=== PATIENT | female | born 1950 | race Caucasian/White ===

== ENCOUNTER → 2018-05-04 | Outpatient (CLI) | payer MEDICARE, BC ==
--- NOTE | 2018-05-05 14:04 | MM ---
Reason for exam: screening (asymptomatic). Last mammogram was performed 1 year and 10 months ago. History: Patient is postmenopausal and has history of colon cancer at age 47. Physical Findings: A clinical breast exam by your physician is recommended on an annual basis and results should be correlated with mammographic findings. MG 3D Screening Mammo W/Cad Bilateral CC and MLO view(s) were taken. Prior study comparison: July 01, 2016, bilateral MG screening mammo w CAD. December 11, 2014, bilateral MG screening mammo w CAD. The breast tissue is heterogeneously dense. This may lower the sensitivity of mammography. There is no discrete abnormality. ASSESSMENT: Negative, BI-RAD 1 RECOMMENDATION: Routine screening mammogram of both breasts in 1 year.
== END | disposition home or self-care (01) ==
LOC: RADMAMWWP 07:12
PROVIDERS: ATTEND Internal Medicine Hematology & Oncology
DX: Z12.31 Encounter for screening mammogram for malignant neoplasm of breast (principal)
CPT/HCPCS: 77063; 77067

== ENCOUNTER 2018-09-11 15:19 | Emergency (ER) | payer MEDICARE, BC ==
--- NOTE | 2018-09-11 15:55 | XR ---
EXAMINATION TYPE: XR hand complete RT DATE OF EXAM: 09/11/2018 COMPARISON: NONE HISTORY: Swelling and pain TECHNIQUE: 3 views FINDINGS: There is narrowing and spurring at the first carpometacarpal joint. Metacarpals are otherwi se intact. There is narrowing of the second and third MP joints bases. There is some spurring at the DIP joints. I see no fracture nor dislocation or soft tissue swelling over the distal forearm. IMPRESSION: Soft tissue swelling. No fracture. Osteoarthritis.
--- NOTE | 2018-09-11 15:58 | XR ---
EXAMINATION TYPE: XR forearm RT DATE OF EXAM: 09/11/2018 COMPARISON: NONE HISTORY: Pain and swelling TECHNIQUE: 2 views FINDINGS: There is some soft tissue swelling on the dorsum of the distal forearm. I see no fracture n or dislocation. Elbow joint and wrist joint appear intact. IMPRESSION: Soft tissue swelling. No fracture seen.
[2018-09-11] MEDS ORDERED: DIPH,PERTUS(ACELL)TETVAC-LF 0.5 ML VIAL IM ONE (16:08)
[2018-09-11] MEDS ORDERED: LIDOCAINE 1% INJ 10MG/ML (20 ML MDV) SQ STA (16:41)
--- NOTE | 2018-09-11 17:30 | ED ---
General Adult HPI - General Chief complaint: Extremity Injury, Upper Stated complaint: Wrist injury Time Seen by Provider: 09/11/18 15:31 Source: patient, RN notes reviewed, old records reviewed Mode of arrival: ambulatory Limitations: no limitations - History of Present Illness Initial comments: 67-year-old female patient past medical history of Sjogren syndrome, hypertension, colon cancer in remission presents to ED after sustaining a injury to her left forearm. Patient reports that she was sledding today and traveling down the hill at a medium rate of speed when she intentionally rolled off of her slowed to avoid a collision with a another slider. Patient states that during this roll her jacket was pushed up by snout and she sustained a laceration to the ulnar aspect of her right forearm. Patient also has some soft tissue swelling did not significant pain in that region. Patient denies any trauma to head or neck, denies any loss of consciousness. Patient denies any other complaints, is ambulatory without difficulty. Patient denies use of blood thinners. Patient does not know date of last tetanus shot. Systemic: Pt denies fatigue, myalgia, fever/chills, rash. Pt denies weakness, night sweats, weight loss. Neuro: Pt denies headache, visual disturbances, syncope or pre-syncope. HEENT: Pt denies ocular discharge or irritation, otalgia, rhinorrhea, pharyngitis or notable lymphadenopathy. Cardiopulmonary: Pt denies chest pain, SOB, heart palpitations, dyspnea on exertion. Abdominal/GI: Pt denies abdominal pain, n/v/d. : Pt denies dysuria, burning w/ urination, frequency/urgency. Denies new onset urinary or bowel incontinence. MSK: Pt denies myalgia, loss of strength or function in extremities. Neuro: Pt denies new onset weakness, paresthesias. - Related Data Home Medications Medication Instructions Recorded Confirmed amLODIPine BESYLATE [Norvasc] 5 mg PO DAILY 04/16/14 07/09/16 Calcium + Vit D 2 tab PO DAILY 07/08/16 07/08/16 Pilocarpine [Salagen] 5 mg PO BID 07/08/16 07/08/16 Previous Rx's Medication Instructions Recorded Amoxicillin/Potassium Clav 1 each PO Q12HR #20 tab 07/09/16 [Augmentin 875-125 Tablet] Hydrocodone/Acetaminophen [[place] 1 - 2 each PO Q6HR PRN #50 tab 07/09/16 5-325] predniSONE 20 mg PO DIRECTED #5 tab 07/09/16 Allergies Allergy/AdvReac Type Severity Reaction Status Date / Time No Known Allergies Allergy Verified 09/11/18 15:25 Review of Systems ROS Statement: Those systems with pertinent positive or pertinent negative responses have been documented in the HPI. ROS Other: All systems not noted in ROS Statement are negative. Past Medical History Past Medical History: Cancer, Hyperlipidemia, Hypertension Additional Past Medical History / Comment(s): hx colon cancer, sjogrens History of Any Multi-Drug Resistant Organisms: None Reported Past Surgical History: Appendectomy, Bowel Resection, Joint Replacement, Tubal Ligation Additional Past Surgical History / Comment(s): COLOSTOMY/later reversed, RIGHT HIP REPLACEMENT, ORIF left wrist, "face lift" Past Anesthesia/Blood Transfusion Reactions: No Reported Reaction Past Psychological History: No Psychological Hx Reported Smoking Status: Never smoker Past Alcohol Use History: Occasional Past Drug Use History: None Reported - Past Family History Brother(s) Family Medical History: Cancer General Exam - General Exam Comments Initial Comments: Constitutional: NAD, AOX3, Pt has pleasant affect. HEENT: NC/AT, trachea midline, neck supple, no lymphadenopathy. Posterior pharynx non erythematous, without exudates. External ears appear normal, without discharge. Mucous membranes moist. Eyes PERRLA, EOM intact. There is no scleral icterus. No pallor noted. Cardiopulmonary: RRR, no murmurs, rubs or gallops, no JVD noted. Lungs CTAB in anterior and posterior duarte. No peripheral edema. Abdominal exam: Abdomen soft and non-distended. Abdomen non-tender to palpation in all 4 quadrants. Bowel sounds active in LLQ. No hepatosplenomegaly. No ecchymosis Neuro: CN II-XII intact. No nuchal rigidity. No cervical spinal tenderness. MSK: Approximately 4cm laceration on ulnar aspect of R forearm, midshaft. Mild amount of soft tissue swelling at site of laceration. No tenerness to palpation of hand/wrist with exception of site of laceration. Full ROM of hand, fingers, sensation intact. No posterior calf tenderness bilaterally, homans sign negative bilaterally. Posterior tibialis and radial pulse +2 bilaterally. Sensation intact in upper and lower extremities. Full active ROM in upper and lower extremities, 5/5 stregnth. Limitations: no limitations Course Vital Signs 09/11/18 09/11/18 15:22 17:39 Temperature 97.7 F 97.9 F Pulse Rate 72 83 Respiratory 16 18 Rate Blood Pressure 117/74 130/85 O2 Sat by Pulse 99 100 Oximetry Procedures - Laceration Laceration #1 Consent Obtained: verbal consent Time Out Performed: Yes Indication: laceration Site: upper extremity (R forearm) Size (cm): 4 Description: linear Depth: simple, single layer Anesthetic Used: lidocaine 1% Anesthesia Technique: local infiltration Amount (mls): 5 Pre-repair: wound explored, irrigated extensively (1L NS), deep structures intact Type of Sutures: nylon Size of Sutures: 5-0 Number of Sutures: 7 Technique: simple, interrupted Patient Tolerated Procedure: well, no complications Medical Decision Making - Medical Decision Making 67-year-old female patient past medical history of Sjogren syndrome, hypertension, colon cancer in remission presents to ED after sustaining a injury to her left forearm. Patient reports that she was sledding today and traveling down the hill at a medium rate of speed when she intentionally rolled off of her slowed to avoid a collision with a another slider. Patient states that during this roll her jacket was pushed up by snout and she sustained a laceration to the ulnar aspect of her right forearm. Pt VSS, afebrile. Physical exam revealed: Approximately 4cm laceration on ulnar aspect of R forearm, midshaft. Mild amount of soft tissue swelling at site of laceration. No tenerness to palpation of hand/wrist with exception of site of laceration. Full ROM of hand, fingers, sensation intact. No posterior calf tenderness bilaterally , homans sign negative bilaterally. Posterior tibialis and radial pulse +2 bilaterally. Sensation intact in upper and lower extremities. Full active ROM in upper and lower extremities, 5/5 stregnth. Plain film of right hand and forearm did not display any acute osseous abnormality. Wound closed primarily with 7 simple interrupted sutures. Wound irrigated with 1 L normal saline. Patient tetanus updated. Patient to return in 7-10 days to have sutures removed. Patient to follow with primary care provider in 1-2 days. Patient to watch for signs symptoms of infection, educated extensively, patient verbalized understanding. Patient to return to ED if new signs or symptoms develop or if condition worsens in any way. Case discussed in depth with Dr. Dallas. Disposition Clinical Impression: Laceration Disposition: HOME SELF-CARE Condition: Stable Instructions: Care For Your Stitches (ED), Laceration (ED) Additional Instructions: Patient to adhere to previously discussed treatment plan and will take medication(s) as directed. Patient to follow up with PCP in 1-2 days. Patient to return to ED if symptoms do not improve. Is patient prescribed a controlled substance at d/c from ED?: No Referrals: Star Garner MD [Primary Care Provider] - 1-2 days Time of Disposition: 17:30
[2018-09-11 17:40] VITALS: BP 130/85; PULSE 83; RESP 18; TEMP 97.9
== END 2018-09-11 17:40 | disposition home or self-care (01) ==
LOC: EC 15:19
DX: S51.811A Laceration without foreign body of right forearm, initial encounter (principal); M35.00 Sjogren syndrome, unspecified; I10 Essential (primary) hypertension; Z85.038 Personal history of other malignant neoplasm of large intestine; Z79.899 Other long term (current) drug therapy; Z96.641 Presence of right artificial hip joint; Z23 Encounter for immunization; W19.XXXA Unspecified fall, initial encounter; Y93.23 Activity, snow (alpine) (downhill) skiing, snowboarding, sledding, tobogganing and snow tubing; Y92.828 Other wilderness area as the place of occurrence of the external cause
CPT/HCPCS: 99284 ×2; 90471 ×2; 12002 ×2; 73090; 73130; 90715; J2001

== ENCOUNTER 2018-12-23 10:47 | Day surgery (SDC) | payer MEDICARE, BC ==
[~2018-12-23 10:47] MED LIST: DEXAMETHASONE SOD PHOSPHATE 10 MG/ML 1 ML VIAL IV ONE; MIDAZOLAM 2 MG/2 ML VIAL IV PRN; ONDANSETRON 4 MG/2 ML VIAL IVP ONE; ceFAZolin IN SWFI 2 GM/20 ML SYRINGE IVP ONE
[2018-12-23] MEDS: LACTATED RINGERS 1,000 ML IV SCH ×2 (11:20→17:17)
[2018-12-23] MEDS ORDERED: LIDOCAINE 1% 20 ML VIAL (10MG/ML) FOR IV START SQ ONE (11:21)
[2018-12-23] MEDS ORDERED: PROPOFOL 10 MG/ML 20 ML VIAL IV ONE (12:33)
[2018-12-23] MEDS ORDERED: LIDOCAINE 1% INJ 10MG/ML (20 ML MDV) ONE (12:33)
[2018-12-23] MEDS ORDERED: HYDROmorphone (PF) 1 MG/ML ONE (12:33)
[2018-12-23] MEDS ORDERED: fentaNYL (PF) 50 MCG/ML 2 ML AMP ONE (12:33)
[2018-12-23] MEDS ORDERED: MIDAZOLAM 2 MG/2 ML VIAL ONE (12:33)
--- NOTE | 2018-12-23 14:34 | FL ---
Fluoroscopy HISTORY: Arthrodesis 9 seconds fluoroscopy time supplied to the referring clinician. 2 intraoperative C-arm images docume nt the procedure. See dictated report from orthopedic surgery.
--- NOTE | 2018-12-23 14:36 | XR ---
Limited left foot HISTORY: Arthrodesis 2 intraoperative C-arm images document the procedure.
[2018-12-23] MEDS ORDERED: ONDANSETRON 4 MG/2 ML VIAL IVP PRN (14:54)
[2018-12-23] MEDS ORDERED: SENNOSIDES-DOCUSATE SODIUM 1 EACH TAB PO PRN (14:54)
[2018-12-23] MEDS ORDERED: hydrOXYzine PAMOATE 25 MG CAP PO PRN (14:54)
[2018-12-23] MEDS ORDERED: HYDROmorphone 0.5 MG/0.5 ML SYRINGE IVP PRN ×3 (14:54)
[2018-12-23] MEDS: HYDROmorphone 0.5 MG/0.5 ML SYRINGE IVP PRN ×2 (14:57→15:06)
--- NOTE | 2018-12-23 15:00 | P.OP ---
Date of Procedure: 12/23/18 Preoperative Diagnosis: 1. Left hallux rigidus status post first MTP fusion with early valgus deformity 2. Open wound over her left first MTP incision Postoperative Diagnosis: 1. Valgus malunion left first MTP joint 2. Open wound with communication the hardware over her first MTP joint Procedure(s) Performed: 1. Revision fusion left first MTP joint 2. Hardware removal deep, left foot 3. 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 I previously performed a left first MTP arthrodesis in September 2018. She did well initially but then developed progressively worsening valgus deformity and overlapping of the second toe. She then developed cellulitis that didn't respond to oral antibiotics and resulted in an open wound over the incision. There is exposed tendon and a small amount of drainage. I met with the patient in the office earlier this week to discuss treatment. We discussed referral to the wound center and suppressive antibiotics versus operative debridement. We also discussed revising the fusion at that same setting. The patient requested exploring the wound and if there was no evidence of deep infection revising the first MTP joint. She understands the potential for deep infection that may re quire not placing hardware and need for further surgery. We discussed potential risks and competitions of surgery including but not limited to risk of anesthesia, superficial infection, deep infection, delayed wound healing, superficial wound necrosis, deep wound necrosis, nonunion of the fusion site, malunion the fusion site, some to Chance hardware, chronic pain, chronic swelling, DVT, PE, other medical complications, need for further surgery, possibly loss of life or limb. The patient voiced understanding of this and provided her verbal and written consent to go forward with surgery. Operative Findings: There is a small open wound over the dorsal incision the size of a pencil eraser with visible tendon. The open wound tracked down to the plate. The fusion site had almost completely healed and there is no evidence of deep infection. Description of Procedure: The patient was identified in preoperative holding and the correct left leg was marked with my initials. I reviewed the consent form with the patient and her friend. All of their questions were answered. The patient was then brought back to the operating room by anesthesia. She was positioned on the or table where a general anesthetic and preoperative X were given. A tourniquet was applied proximal aspect of the left leg. All bony prominences were well-padded. The left leg was then prepped and draped in the standard sterile fashion. Prior to starting surgery timeout was performed identifying the correct patient, operative extremity, and procedure. The patient's leg was then elevated, exsanguinated with an Esmarch bandage, and the tourniquet was inflated to 250 mmHg. I began by outlining the prior scar over the dorsum of the first MTP joint taking care to ellipse out the open wound. Skin incision was made with a scalpel. Dissection was carried down carefully through subcutaneous tissue. The open wound was found to tract down to the plate. The capsule over the first MTP joint was elevated and the plate and screws were carefully removed. The lag screw across the joint was then removed as well. On inspection the fusion appeared to be almost completely healed. Using a quarter inch osteotome I was able to open the fusion site without damaging the surrounding bone. The wound was thoroughly irrigated with sterile saline. A Macario was used to freshen up the bone of the first metatarsal head and proximal phalanx base. Bone was taken off the proximal phalanx until the first metatarsal head and proximal phalanx could be positioned straight. A 0.0625 K wire was used to perforate the bone to help facilitate fusion. Augment was then injected in and around the fusion site to help with healing. 0.0625 K wires were placed across the joint to hold it in place. The position of the fusion was checked with a flat plate and the toe appeared straight with out excessive valgus or dorsiflexion. Fluoroscopy was used to verify the position. I then placed a precontoured revision first MTP fusion plate over the dorsum of the first ray. It was slightly contoured to fit the patient's anatomy. An olive-tipped K wire was placed proximally holding the plate down to bone. I then placed a nonlocking 2.7 mm screw distally into the proximal phalanx bring the plate down to bone followed by locking 2.7 mm screws. Attention was then turned proximally and a nonlocking 3.5 mm screw was placed through the proximal portion of the eccentric cold to generate compression. 2 locking 3.5 mm screws were placed just proximal to the joint and a final nonlocking 3.5 mm screw was placed in the central portion of the oblong hole. The fusion site appeared stable with excellent compression. Local bone graft obtained throughout the procedure was packed around the fusion site. The remaining augment from the syringe was injected in and around the fusion site. Final fluoroscopic images were taken. Clinically the toe appeared straight. The capsule was closed with interrupted 0 Vicryl. The deep subcu was reapproximated using 3-0 Monocryl. The skin was closed with 3-0 nylon Algor modification of the Donati stitch. The wound was then thoroughly irrigated. A sterile dressing was applied followed by well-padded bulky Lee splint. The patient was awoken from her anesthetic, transferred to a gurney, and brought to recovery ramp out procedure well. Cynthia Cantu PA-C was required as a skilled post production assistant for patient positioning, surgical exposure, placement of hardware, closure of wound and application of splint. Plan: The patient is going to be admitted overnight for IV antibiotics and a wound consultation with Dr. Chappell regarding need for long-term suppressive antibiotics. She is to be strictly nonweightbearing on her left leg for 6 weeks given this as a revision procedure. We'll check a vitamin D to help optimize her bone healing potential. She'll be seen in 2 weeks for splint removal, soft tissue check, and x-rays.
[2018-12-23] MEDS ORDERED: KETOROLAC 30 MG/ML 1 ML VIAL IVP ONE (15:07)
[2018-12-23 17:27] VITALS: BMI 26.8
[2018-12-23] MEDS: HYDROcodone/APAP 5-325MG 1 EACH TAB PO PRN ×2 (17:33→22:54)
[2018-12-23 19:48] LABS: Basophils % (A) 0 %; Eosinophils % (A) 0 %; HCT 39.5 % (34.0-46.0); HGB 12.9 gm/dL (11.4-16.0); Lymphocytes # (A) 0.8 k/uL (1.0-4.8); Lymphocytes % (A) 10 %; MCHC 32.8 g/dL (31.0-37.0); MCV 94.5 fL (80.0-100.0); Mean Platelet Volume 8.8; Monocytes # (A) 0.1 k/uL (0-1.0); Monocytes % (A) 2 %; Neutrophils % (A) 87 %; Platelet Count 204 k/uL (150-450); RBC 4.18 m/uL (3.80-5.40); RDW 14.1 % (11.5-15.5)
[2018-12-23] MEDS: ceFAZolin IN SWFI 2 GM/20 ML SYRINGE IVP SCH (21:54)
--- NOTE | 2018-12-23 23:28 | P.CONS ---
History of Present Illness - Reason for Consult Consult date: 12/23/18 - Chief Complaint ulceration of the left foot - History of Present Illness 68 year old woman who is status post the left first toe MTP joint fusion. Postoperatively started have difficulties and developed a valgus deformity, as well as ulceration and some hardware exposure. The patient subsequently has been taken the operating room in the necrotic tissue excised, deep hardware removed, valgus deformity repaired and closure has occurred. Because of the exposed hardware consultation was requested. This very pleasant woman relates that the site has been mildly uncomfortable. She had difficulty with redness and irritation to the tissue since shortly after the intervention had occurred. Eventually worsening of the point in time of ulceration. The patient does relate to a known history of difficulties with metals. 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 She even obtained a high quality pair of earrings and still had irritation to her ears.. Of note she does have a right total hip arthroplasty without difficulty. She is not able to relate if it is a nickel free product. At this time she is receiving cefazolin the for routine surgical prophylaxis. Deep cultures have been initiated. Family reviewed and plans will be placed for her outpatient antibiotic therapy. His related that she was receiving trimethoprim sulfamethoxazole prior to admission. If she does well will likely discharge tomorrow on oral cephalosporin for somewhat of a chronic treatment given the recent difficulty. Past Medical History Past Medical History: Cancer, Hyperlipidemia, Hypertension Additional Past Medical History / Comment(s): hx colon cancer 1994, sjogrens, past hx. 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, current infection left foot-had surgery 10-20-18 History of Any Multi-Drug Resistant Organisms: None Reported Past Surgical History: Appendectomy, Bowel Resection, Joint Replacement, Tubal Ligation Additional Past Surgical History / Comment(s): COLOSTOMY/later reversed, RIGHT HIP REPLACEMENT, ORIF left wrist, "face lift", right medialization thyroplasty w/stent, bunionectomy & toe surgery left foot 10-20-18 Past Anesthesia/Blood Transfusion Reactions: No Reported Reaction Additional Past Anesthesia/Blood Transfusion Reaction / Comm: has vocal cord stent Past Psychological History: No Psychological Hx Reported Smoking Status: Never smoker Past Alcohol Use History: Occasional Past Drug Use History: None Reported - Past Family History Brother(s) Family Medical History: Cancer Medications and Allergies Home Medications Medication Instructions Recorded Confirmed Type amLODIPine BESYLATE [Norvasc] 5 mg PO DAILY 04/16/14 12/23/18 History Calcium Carbonate/Vitamin D3 1 each PO DAILY 07/08/16 12/23/18 History [Calcium 500-Vit D3 600 Tablet] Hydrocodone/Acetaminophen [[place] 1 - 2 each PO Q6HR PRN #50 tab 07/09/16 12/23/18 Rx 5-325] Lovastatin [Mevacor] 20 mg PO DAILY 12/21/18 12/23/18 History Sulfamethox-Tmp 800-160Mg [Bactrim 1 tab PO Q12HR 12/21/18 12/23/18 History DS 800-160 mg] Aspirin 325 mg PO DAILY #14 tab 12/23/18 Rx Docusate [Colace] 100 mg PO BID #60 capsule 12/23/18 Rx Hydrocodone/Acetaminophen [[place] 1 tab PO Q4-6H PRN #40 tab 12/23/18 Rx 5-325] Allergies Allergy/AdvReac Type Severity Reaction Status Date / Time No Known Allergies Allergy Verified 12/21/18 12:20 Physical Exam Vitals: Vital Signs Temp Pulse Pulse Resp BP Pulse Ox 12/23/18 19:10 97.6 F 82 14 134/70 97 12/23/18 18:12 69 151/75 12/23/18 17:57 71 148/76 12/23/18 17:50 75 18 12/23/18 17:27 71 148/76 12/23/18 17:12 84 165/74 12/23/18 16:01 75 18 163/70 99 12/23/18 15:45 77 16 154/67 99 12/23/18 15:30 91 16 164/73 99 12/23/18 15:16 79 16 159/71 98 12/23/18 15:01 98 18 162/72 97 12/23/18 14:53 97.6 F 101 H 18 157/70 94 L 12/23/18 11:01 98.3 F 64 16 127/91 100 Intake and Output 12/23/18 12/23/18 12/24/18 14:59 22:59 06:59 Intake Total 650 150 Output Total 10 Balance 640 150 Intake: IV 650 150 Output: Estimated Blood Loss 10 Other: Voiding Method Toilet Results CBC & Chem 7: 12/23/18 19:20 Labs: Abnormal Lab Results - Last 24 Hours (Table) 12/23/18 Range/Units 19:20 Lymphocytes # 0.8 L (1.0-4.8) k/uL Microbiology - Last 24 Hours (Table) 12/23/18 13:05 Anaerobic Culture - Preliminary Foot - Left 12/23/18 13:05 Tissue Culture - Preliminary Foot - Left
[2018-12-24] MEDS: LACTATED RINGERS 1,000 ML IV SCH ×2 (00:25→04:09)
[2018-12-24] MEDS: ceFAZolin IN SWFI 2 GM/20 ML SYRINGE IVP SCH (04:14)
[2018-12-24] MEDS: HYDROcodone/APAP 5-325MG 1 EACH TAB PO PRN ×2 (07:02→12:09)
[2018-12-24] MEDS ORDERED: ENOXAPARIN 40 MG/0.4 ML SYRINGE SQ SCH (09:00)
[2018-12-24 09:11] VITALS: BP 135/66; PULSE 73; RESP 16; TEMP 97.8
--- NOTE | 2018-12-24 17:12 | P.PN ---
Subjective Progress Note Date: 12/24/18 68 year old woman who is status post the left first toe MTP joint fusion. Postoperatively started have difficulties and developed a valgus deformity, as well as ulceration and some hardware exposure. The patient subsequently has been taken the operating room in the necrotic tissue excised, deep hardware removed, valgus deformity repaired and closure has occurred. Because of the exposed hardware consultation was requested. This very pleasant woman relates that the site has been mildly uncomfortable. She had difficulty with redness and irritation to the tissue since shortly after the intervention had occurred. Eventually worsening of the point in time of ulceration. The patient does relate to a known history of difficulties with metals. 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 She even obtained a high quality pair of earrings and still had irritation to her ears.. Of note she does have a right total hip arthroplasty without difficulty. She is not able to relate if it is a nickel free product. At this time she is receiving cefazolin the for routine surgical prophylaxis. Deep cultures have been initiated. Family reviewed and plans will be placed for her outpatient antibiotic therapy. His related that she was receiving trimethop rim sulfamethoxazole prior to admission. If she does well will likely discharge tomorrow on oral cephalosporin for somewhat of a chronic treatment given the recent difficulty. 12/24/2018 patient has definitely improved. Objective - Vital Signs Vital signs: Vital Signs Temp 97.8 F 12/24/18 07:00 Pulse 73 12/24/18 07:00 Resp 16 12/24/18 07:00 BP 135/66 12/24/18 07:00 Pulse Ox 94 L 12/24/18 07:00 Intake & Output 12/23/18 12/24/18 12/24/18 18:59 06:59 18:59 Intake Total 800 1100 1280 Output Total 10 Balance 790 1100 1280 Intake: IV 800 Intake, IV Titration 1100 800 Amount Lactated Ringers 1,000 ml 1100 800 @ 100 mls/hr IV .Q10H JHONATAN Rx#:[id number] Oral 480 Output: Estimated Blood Loss 10 Other: Voiding Method Toilet # Voids 2 1 - Exam HEENT: Anicteric conjunctiva are pink and moist nasal mucosa grossly intact without significant lesions, there is no thrush. Neck: The neck is supple without significant lymphadenopathy or thyromegaly. Lungs: Good bilateral air entry without significant crackles or wheezing. There is no significant bronchial sounds. There is no egophony or dullness. Heart: Regular rate and rhythm with an audible S1-S2, no S3 no S4. There is no significant murmur click or rub, PMI was nondisplaced. Abdomen: Positive bowel sounds soft and nontender without palpable masses or organomegaly. There was no guarding or rebound. Extremities: Carolee extremities are intact has a cast in place on the left lower extremity at the foot Neuro: Awake alert oriented to person place and time. There are no acute new gross focal sensory motor deficits. - Labs CBC & Chem 7: 12/23/18 19:20 Labs: Abnormal Lab Results - Last 24 Hours (Table) 12/23/18 Range/Units 19:20 Lymphocytes # 0.8 L (1.0-4.8) k/uL Microbiology - Last 24 Hours (Table) 12/23/18 13:05 Gram Stain - Preliminary Foot - Left Tissue Culture - Preliminary 12/23/18 13:05 Anaerobic Culture - Preliminary Foot - Left Laboratory Results WBC 8.0 k/uL (3.8-10.6) 12/23/18 19:20 RBC 4.18 m/uL (3.80-5.40) 12/23/18 19:20 Hgb 12.9 gm/dL (11.4-16.0) 12/23/18 19:20 Hct 39.5 % (34.0-46.0) 12/23/18 19:20 MCV 94.5 fL (80.0-100.0) 12/23/18 19: MCH 31.0 pg (25.0-35.0) 12/23/18 19:20 MCHC 32.8 g/dL (31.0-37.0) 12/23/18 19:20 RDW 14.1 % (11.5-15.5) 12/23/18 19:20 Plt Count 204 k/uL (150-450) 12/23/18 19:20 Neutrophils % 87 % 12/23/18 19:20 Lymphocytes % 10 % 12/23/18 19:20 Monocytes % 2 % 12/23/18 19:20 Eosinophils % 0 % 12/23/18 19:20 Basophils % 0 % 05/03/19 19:20 Neutrophils # 7.0 k/uL (1.3-7.7) 12/23/18 19:20 Lymphocytes # 0.8 k/uL (1.0-4.8) L 12/23/18 19:20 Monocytes # 0.1 k/uL (0-1.0) 12/23/18 19:20 Eosinophils # 0.0 k/uL (0-0.7) 12/23/18 19:20 Basophils # 0.0 k/uL (0-0.2) 12/23/18 19:20 Microbiology 12/23/18 13:05 Foot - Left Gram Stain - Preliminary 12/23/18 13:05 Foot - Left Tissue Culture - Preliminary 12/23/18 13:05 Foot - Left Anaerobic Culture - Preliminary Assessment and Plan (1) Hardware failure Narrative/Plan: 68-year-old woman presents to Hospital for removal of hardware and repair of the left great toe. This is occurred and she is doing well in the postoperative time frame. Deep cultures were obtained and gram stains are negative and no evidence of any significant purulence or inflammation are seen. Patient is transitioned to oral cefadroxil 500 mg orally every 12 hours for the next many weeks. Happy to follow in the office in about a month to see how she does and antibiotic therapy and help wound healing is progressing at that point in time. Protracted antibiotic therapy given the desire to retain current hardware. There is however concerned to underlying nickel ALLERGY, but does have a right total hip arthroplasty that has been well incorporated without difficulty. Status: Acute Code(s): XUI6196 - SNOMED Code(s): 194983057
== END 2018-12-24 16:27 ==
LOC: OR 10:47 → 4SSUR 14:53 → OR 12-24 16:27
PROVIDERS: ATTEND Orthopaedic Surgery
DX: M20.22 Hallux rigidus, left foot (principal); M21.072 Valgus deformity, not elsewhere classified, left ankle; S91.102A Unspecified open wound of left great toe without damage to nail, initial encounter; L03.032 Cellulitis of left toe; T85.848A Pain due to other internal prosthetic devices, implants and grafts, initial encounter; Z98.1 Arthrodesis status; Z96.641 Presence of right artificial hip joint; I10 Essential (primary) hypertension; E78.5 Hyperlipidemia, unspecified; M35.00 Sjogren syndrome, unspecified; Z85.038 Personal history of other malignant neoplasm of large intestine; Z90.49 Acquired absence of other specified parts of digestive tract; Z79.82 Long term (current) use of aspirin; Z79.899 Other long term (current) drug therapy; Z91.048 Other nonmedicinal substance allergy status
CPT/HCPCS: 85025; 87070; 87205; 87075; 87077; 87186; 73620; 28750; 20900; 20680; C1713 ×2; J2250; J1100; J2405; J2001; J1650; J3010; J1885; J1170 ×2; J2704; J0690 ×2

== ENCOUNTER → 2019-09-14 | Outpatient (CLI) | payer MEDICARE ==
--- NOTE | 2019-09-15 10:50 | MM ---
Reason for exam: screening (asymptomatic). Last mammogram was performed 1 year and 4 months ago. History: Patient is postmenopausal and has history of colon cancer at age 47. Physical Findings: A clinical breast exam by your physician is recommended on an annual basis and results should be correlated with mammographic findings. MG 3D Screening Mammo W/Cad Bilateral CC and MLO view(s) were taken. Prior study comparison: May 04, 2018, bilateral MG 3d screening mammo w/cad. July 01, 2016, bilateral MG screening mammo w CAD. The breast tissue is heterogeneously dense. This may lower the sensitivity of mammography. There are benign appearing round calcifications bilaterally. There is no discrete abnormality. ASSESSMENT: Benign, BI-RAD 2 RECOMMENDATION: Routine screening mammogram of both breasts in 1 year.
== END | disposition home or self-care (01) ==
LOC: RADMAMWWP 07:47
PROVIDERS: ATTEND Internal Medicine Hematology & Oncology
DX: Z12.31 Encounter for screening mammogram for malignant neoplasm of breast (principal)
CPT/HCPCS: 77063; 77067

== ENCOUNTER → 2020-07-12 | Outpatient (CLI) | payer MEDICARE | END | disposition home or self-care (01) | LOC: LABWHC1 12:01 | PROVIDERS: ATTEND Internal Medicine Hematology & Oncology | DX: U07.1 COVID-19 (principal) | CPT/HCPCS: U0003; C9803 ==

== ENCOUNTER → 2020-12-17 | Outpatient (CLI) | payer MEDICARE ==
--- NOTE | 2020-12-18 08:38 | MM ---
Reason for exam: screening (asymptomatic). Last mammogram was performed 1 year and 3 months ago. History: Patient is postmenopausal and has history of colon cancer at age 47. Physical Findings: A clinical breast exam by your physician is recommended on an annual basis and results should be correlated with mammographic findings. MG 3D Screening Mammo W/Cad Bilateral CC and MLO view(s) were taken. Prior study comparison: September 14, 2019, bilateral MG 3d screening mammo w/cad. May 04, 2018, bilateral MG 3d screening mammo w/cad. The breast tissue is heterogeneously dense. This may lower the sensitivity of mammography. Stable benign calcifications. There is no discrete abnormality. No significant changes when compared with prior studies. ASSESSMENT: Benign, BI-RAD 2 RECOMMENDATION: Routine screening mammogram of both breasts in 1 year.
== END | disposition home or self-care (01) ==
LOC: RADMAMWWP 13:19
PROVIDERS: ATTEND Internal Medicine Hematology & Oncology
DX: Z12.31 Encounter for screening mammogram for malignant neoplasm of breast (principal); Z78.0 Asymptomatic menopausal state
CPT/HCPCS: 77063; 77067

== ENCOUNTER → 2022-02-24 | Outpatient (CLI) | payer MEDICARE ==
--- NOTE | 2022-02-26 07:54 | MM ---
Reason for Exam: Screening (asymptomatic). Last mammogram was performed 1 year(s) and 3 month(s) ago. Patient History: Menarche at age 14. First Full-Term at age 28. Postmenopausal. Colorectal cancer, age 47. Risk Values: Claire 5 year model risk: 1.9%. NCI Lifetime model risk: 5.9%. Prior Study Comparison: 05/04/2018 Bilateral Screening Mammogram, [facility]. 09/14/2019 Bilateral Screening Mammogram, [facility]. 12/17/2020 Bilateral Screening Mammogram, [facility]. Tissue Density: The breast tissue is heterogeneously dense. This may lower the sensitivity of mammography. Findings: Analyzed By CAD. There is somewhat asymmetric breast tissue with greater parenchymal tissue on the anterior right compared to left. Scattered stable calcifications are present bilaterally. No suspicious groups of microcalcifications, spiculated or lobular masses, architectural distortion or other secondary signs of malignancy are mammographically apparent. Overall Assessment: Benign, BI-RAD 2 Management: Screening Mammogram of both breasts in 1 year. A negative mammogram report should not preclude additional follow up of suspicious palpable abnormalities. Patient should continue monthly self breast exam. A clinical breast exam by your physician is recommended on an annual basis and results should be correlated with mammographic findings. Electronically signed and approved by: Devante Olivares D.O. Radiologis
== END | disposition home or self-care (01) ==
LOC: RADMAMWWP 13:26
PROVIDERS: ATTEND Obstetrics & Gynecology
DX: Z12.31 Encounter for screening mammogram for malignant neoplasm of breast (principal); Z78.0 Asymptomatic menopausal state
CPT/HCPCS: 77063; 77067

== ENCOUNTER 2022-09-01 08:15 | Day surgery (SDC) | payer MEDICARE ==
[2022-08-27 11:46] VITALS: BMI 21.2
[~2022-09-01 08:15] MED LIST changes: -DEXAMETHASONE SOD PHOSPHATE 10 MG/ML 1 ML VIAL IV ONE; +LACTATED RINGERS 1,000 ML IV SCH; +LIDOCAINE 1% (10MG/ML) FOR IV START INTRADERMA PRN; -MIDAZOLAM 2 MG/2 ML VIAL IV PRN; -ONDANSETRON 4 MG/2 ML VIAL IVP ONE; -ceFAZolin IN SWFI 2 GM/20 ML SYRINGE IVP ONE
[2022-09-01 08:43] VITALS: RESP 16; TEMP 97.1
[2022-09-01] MEDS ORDERED: PROPOFOL 10 MG/ML 20 ML VIAL IV ONE (09:19)
--- NOTE | 2022-09-01 09:23 | P.GSHP ---
History of Present Illness H&P Date: 09/01/22 Chief Complaint: Colon cancer screening 1-0-ux[age]-old female here today for colonoscopy. Last colonoscopy 6 years ago. Patient with personal history of colon cancer requiring sigmoid resection in 1998. No family history of colon cancer. No bowel complaints. Past Medical History Past Medical History: Cancer, Hyperlipidemia, Hypertension Additional Past Medical History / Comment(s): hx colon cancer 1994, sjogrens, past hx. 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, infection left foot post surgical staph History of Any Multi-Drug Resistant Organisms: None Reported Past Surgical History: Appendectomy, Bowel Resection, Joint Replacement, Tubal Ligation Additional Past Surgical History / Comment(s): sigmoid rescection with colostomy/later reversed, RIGHT HIP REPLACEMENT, ORIF left wrist, "face lift", right medialization thyroplasty w/stent, bunionectomy & toe surgery left foot and them I&D after for infection Past Anesthesia/Blood Transfusion Reactions: No Reported Reaction Additional Past Anesthesia/Blood Transfusion Reaction / Comment(s): has vocal cord stent Past Psychological History: No Psychological Hx Reported Smoking Status: Never smoker Past Alcohol Use History: Daily Additional Past Alcohol Use History / Comment(s): vodka Past Drug Use History: None Reported - Past Family History Brother(s) Family Medical History: Cancer Additional Family Medical History / Comment(s): bone Medications and Allergies Home Medications Medication Instructions Recorded Confirmed Type amLODIPine BESYLATE [Norvasc] 5 mg PO DAILY 04/16/14 08/27/22 History Calcium Carbonate/Vitamin D3 1 each PO DAILY 07/08/16 08/27/22 History [Calcium 500-Vit D3 600 Tablet] Lovastatin [Mevacor] 20 mg PO DAILY 12/21/18 08/27/22 History Allergies Allergy/AdvReac Type Severity Reaction Status Date / Time No Known Allergies Allergy Verified 09/01/22 08:34 Surgical - Exam Vital Signs Temp Pulse Resp BP Pulse Ox 97.1 F L 64 16 145/67 97 09/01/22 08:42 09/01/22 08:42 09/01/22 08:42 09/01/22 08:42 09/01/22 08:42 Physical exam: General: Well-developed, well-nourished HEENT: Normocephalic, sclerae nonicteric Abdomen: Nontender, nondistended Extremities: No edema Neuro: Alert and oriented Assessment and Plan (1) Colon cancer screening Narrative/Plan: Will proceed with colonoscopy at this time Current Visit: Yes Status: Acute Code(s): Z12.11 - ENCOUNTER FOR SCREENING FOR MALIGNANT NEOPLASM OF COLON SNOMED Code(s): 059585305
--- NOTE | 2022-09-01 09:56 | P.PCN ---
Date of Procedure: 09/01/22 Procedure(s) Performed: PREOPERATIVE DIAGNOSIS: Colon cancer screening, personal history of colon cancer POSTOPERATIVE DIAGNOSIS: Cecal polyp, rectal polyp, mild diverticulosis PROCEDURE: Colonoscopy with snare polypectomy ANESTHESIA: MAC SURGEON: Sriram Manning M.D. SPECIMENS: Polyps ENDOSCOPIC PROCEDURE: The patient was placed on the endoscopy table in the left decubitus position. The Olympus colonoscope was inserted into the anus and passed under direct visualization to the base of the cecum. The appendiceal orifice was visualized. From that point the scope was slowly withdrawn inspecting all surfaces carefully. There was a small polyp in the cecum. This was removed using the snare with cautery technique. The remainder of the cecum and ascending transverse and descending colon appeared normal. The previous colorectal anastomosis was patent. The patient did have mild diverticulosis in the vicinity of the anastomosis. In the distal rectum another small polyp was seen and also removed using the snare with cautery technique. The remainder of the rectum was normal. Digital rectal examination was normal. The patient was taken to the recovery room in stable condition per anesthesia guidelines. RECOMMENDATIONS: Await biopsy results. Repeat colonoscopy 5 years.
[2022-09-01 10:14] VITALS: BP 114/50; PULSE 55
== END 2022-09-01 10:42 | disposition home or self-care (01) ==
LOC: ORWHC2ENDO 08:15
PROVIDERS: ATTEND Surgery
DX: Z12.11 Encounter for screening for malignant neoplasm of colon (principal); D12.0 Benign neoplasm of cecum; K57.30 Diverticulosis of large intestine without perforation or abscess without bleeding; Z85.038 Personal history of other malignant neoplasm of large intestine; Z98.0 Intestinal bypass and anastomosis status; Z93.3 Colostomy status; I10 Essential (primary) hypertension; E78.5 Hyperlipidemia, unspecified; M35.00 Sjogren syndrome, unspecified; Z98.890 Other specified postprocedural states; J38.00 Paralysis of vocal cords and larynx, unspecified; Z90.49 Acquired absence of other specified parts of digestive tract; Z98.51 Tubal ligation status; Z96.641 Presence of right artificial hip joint; Z86.19 Personal history of other infectious and parasitic diseases; F10.20 Alcohol dependence, uncomplicated; Z96.3 Presence of artificial larynx; Z80.8 Family history of malignant neoplasm of other organs or systems; Z79.02 Long term (current) use of antithrombotics/antiplatelets; Z79.811 Long term (current) use of aromatase inhibitors; Z79.52 Long term (current) use of systemic steroids
CPT/HCPCS: 88305; 45385; J2704

== ENCOUNTER → 2022-12-01 | Outpatient (CLI) | payer MEDICARE ==
--- NOTE | 2022-12-01 10:12 | XR ---
EXAM TYPE: LUMBAR SPINE X RAY SERIES COMPARISON: NONE HISTORY: Pain TECHNIQUE: 4 views are submitted. FINDINGS: Alignment is anatomic. The pedicles are intact. The transverse processes are intact. There is diff use osteopenia with scoliosis. There is a severe degenerative disc disease thoracolumbar spine. There is multilevel severe facet arthropathy with grade 1 anterolisthesis L4 on L5. Moderate to severe deg enerative disc disease to the level of L4. Vascular calcifications noted. Postsurgical change in the pelvis. IMPRESSION: 1. Multilevel severe facet arthropathy with multilevel moderate to severe degenerative disc disease a nd grade 1 anterolisthesis L4 on L5. 2. Interspinous arthropathy correlate for Kendall's disease
== END | disposition home or self-care (01) ==
LOC: RADXRMAIN 09:06
PROVIDERS: ATTEND Internal Medicine Hematology & Oncology
DX: M47.816 Spondylosis without myelopathy or radiculopathy, lumbar region (principal); M51.36 Other intervertebral disc degeneration, lumbar region; N39.0 Urinary tract infection, site not specified; C18.9 Malignant neoplasm of colon, unspecified; I10 Essential (primary) hypertension; E78.5 Hyperlipidemia, unspecified
CPT/HCPCS: 72100

== ENCOUNTER → 2022-12-07 | Outpatient (CLI) | payer MEDICARE ==
--- NOTE | 2022-12-07 11:17 | USB ---
Reason for Exam: Mammographic abnormality. Patient History: Menarche at age 14. First Full-Term at age 28. Postmenopausal. Colorectal cancer, age 47. Risk Values: Claire 5 year model risk: 1.9%. NCI Lifetime model risk: 5.6%. Prior Study Comparison: 09/14/2019 Bilateral Screening Mammogram, [facility]. 12/17/2020 Bilateral Screening Mammogram, [facility]. 02/24/2022 Bilateral MG 3D screening mammo w/cad, [facility]. Findings: The whole breast of both breasts, the axilla of both breasts and the retroareolar of both breasts were scanned. No solid or cystic masses are identified.. Widely prominent ducts are noted bilaterally. Overall Assessment: Benign, BI-RAD 2 Management: Screening Mammogram of both breasts in 3 months. A clinical breast exam by your physician is recommended on an annual basis and results should be correlated with mammographic findings. This exam should not preclude additional follow-up of suspicious palpable abnormalities. Results were given to the patient verbally at the time of exam. Electronically signed and approved by: Leif Sanon M.D. Radiologis
== END | disposition home or self-care (01) ==
LOC: RADUSWWP 10:35
PROVIDERS: ATTEND Internal Medicine Hematology & Oncology
DX: N39.0 Urinary tract infection, site not specified (principal); C18.9 Malignant neoplasm of colon, unspecified; I10 Essential (primary) hypertension; E78.5 Hyperlipidemia, unspecified; Z78.0 Asymptomatic menopausal state

== ENCOUNTER → 2023-09-24 | Outpatient (CLI) | payer MEDICARE ==
--- NOTE | 2023-09-24 10:48 | USB ---
Reason for Exam: Clinical finding. Patient History: Menarche at age 14. First Full-Term at age 28. Postmenopausal. Colorectal cancer, age 47. Risk Values: Claire 5 year model risk: 1.9%. NCI Lifetime model risk: 5.6%. Technique: Method: Whole Breast Handheld. Prior Study Comparison: 09/14/2019 Bilateral Screening Mammogram, [facility]. 12/17/2020 Bilateral Screening Mammogram, [facility]. 02/24/2022 Bilateral MG 3D screening mammo w/cad, [facility]. Findings: The whole breast of both breasts, the axilla of both breasts and the retroareolar of both breasts were scanned. No solid or cystic masses are identified. Mildly prominent ducts noted.. Overall Assessment: Benign, BI-RAD 2 Management: Screening Mammogram of both breasts in 1 year. A clinical breast exam by your physician is recommended on an annual basis and results should be correlated with mammographic findings. This exam should not preclude additional follow-up of suspicious palpable abnormalities. Results were given to the patient verbally at the time of exam. Electronically signed and approved by: Leif Sanon M.D. Radiologis
--- NOTE | 2023-09-28 10:32 | MM ---
Reason for Exam: Screening (asymptomatic). Last mammogram was performed 1 year(s) and 7 month(s) ago. Patient History: Menarche at age 14. First Full-Term at age 28. Postmenopausal. Colorectal cancer, age 47. Risk Values: Claire 5 year model risk: 1.9%. NCI Lifetime model risk: 5.6%. Prior Study Comparison: 09/14/2019 Bilateral Screening Mammogram, [facility]. 12/17/2020 Bilateral Screening Mammogram, [facility]. 02/24/2022 Bilateral MG 3D screening mammo w/cad, [facility]. Tissue Density: The breast tissue is heterogeneously dense. This may lower the sensitivity of mammography. Findings: Analyzed By CAD. There is no suspicious group of microcalcifications or new suspicious mass in either breast. Overall Assessment: Benign, BI-RAD 2 Management: Screening Mammogram of both breasts in 1 year. . Patient should continue monthly self-breast exams. A clinical breast exam by your physician is recommended on an annual basis. This exam should not preclude additional follow-up of suspicious palpable abnormalities. Note on Claire scores and lifetime risk: 1. A Claire score greater than 3% is considered moderate risk. If this is the case, consider specialist referral to assess eligibility for a risk reducing agent. 2. If overall lifetime risk for the development of breast cancer is 20% or higher, the patient may qualify for future screening with alternating mammogram and breast MRI. Electronically signed and approved by: Leif Sanon M.D. Radiologis
== END | disposition home or self-care (01) ==
LOC: RADMAMWWP 09:31
PROVIDERS: ATTEND Internal Medicine Hematology & Oncology
DX: Z12.31 Encounter for screening mammogram for malignant neoplasm of breast (principal); N39.0 Urinary tract infection, site not specified; C18.9 Malignant neoplasm of colon, unspecified; I10 Essential (primary) hypertension; E78.5 Hyperlipidemia, unspecified; Z78.0 Asymptomatic menopausal state
CPT/HCPCS: 77063; 77067

== ENCOUNTER → 2024-10-18 | Outpatient (CLI) | payer MEDICARE ==
--- NOTE | 2024-10-18 11:37 | MM ---
Reason for Exam: Clinical finding. Last screening mammogram was performed 12 month(s) ago. Patient History: Menarche at age 14. First Full-Term at age 28. Postmenopausal. Colorectal cancer, age 47. Risk Values: Claire 5 year model risk: 1.9%. NCI Lifetime model risk: 5.4%. Tissue Density: The breasts are heterogeneously dense, which may obscure small masses. Findings: Analyzed By CAD. No new suspicious masses, calcifications or distortions. Overall Assessment: Negative, BI-RAD 1 Management: Screening Mammogram of both breasts in 1 year. Results were given to the patient verbally at the time of exam. Patient should continue monthly self-breast exams. A clinical breast exam by your physician is recommended on an annual basis. This exam should not preclude additional follow-up of suspicious palpable abnormalities. Note on Claire scores and lifetime risk: 1. A Claire score greater than 3% is considered moderate risk. If this is the case, consider specialist referral to assess eligibility for a risk reducing agent. 2. If overall lifetime risk for the development of breast cancer is 20% or higher, the patient may qualify for future screening with alternating mammogram and breast MRI. [facility], , 10/18/2024 11:33 AM. Electronically signed and approved by: Brad Chery DO
--- NOTE | 2024-10-18 12:24 | USB ---
Reason for Exam: Clinical finding. Patient History: Menarche at age 14. First Full-Term at age 28. Postmenopausal. Colorectal cancer, age 47. Risk Values: Claire 5 year model risk: 1.9%. NCI Lifetime model risk: 5.4%. Technique: Method: Whole Breast Handheld. Prior Study Comparison: 12/17/2020 Bilateral Screening Mammogram, [facility]. 02/24/2022 Bilateral MG 3D screening mammo w/cad, [facility]. 09/24/2023 Bilateral MG 3D screening mammo w/cad, [facility]. Findings: The whole breast of both breasts, the axilla of both breasts and the retroareolar of both breasts were scanned. Technique utilized:US breast complete BILAT Image; Ultrasound imaging of: All 4 quadrants, the retroareolar region and axilla. No evidence for organizing fluid collection or mass. Overall Assessment: Negative, BI-RAD 1 Management: Screening Mammogram of both breasts in 1 year. A clinical breast exam by your physician is recommended on an annual basis and results should be correlated with mammographic findings. This exam should not preclude additional follow-up of suspicious palpable abnormalities. Results were given to the patient verbally at the time of exam. [facility], , 10/18/2024 12:10 PM. Electronically signed and approved by: Brad Chery DO
== END | disposition home or self-care (01) ==
LOC: RADMAMWWP 10:48
PROVIDERS: ATTEND Internal Medicine Hematology & Oncology
DX: Z85.3 Personal history of malignant neoplasm of breast (principal); R92.333 Mammographic heterogeneous density, bilateral breasts; Z78.0 Asymptomatic menopausal state
CPT/HCPCS: 77066; 76641; G0279; 77062

== ENCOUNTER → 2024-12-07 | Outpatient (CLI) | payer MEDICARE ==
--- NOTE | 2024-12-07 12:26 | BD ---
EXAMINATION TYPE: Axial Bone Density DATE OF EXAM: 12/07/2024 CLINICAL HISTORY: 74 years old Female. ICD-10 CODE: M810 OSTEOPENIA , Additional History: Height: 66 Weight: 150.1 FRAX RISK QUESTIONS: Alcohol (3 or more units per day): no Family History (Parent hip fracture): no Glucocorticoids (More than 3mos): no (Ex: prednisone, prednisolone, methylprednisolone, dexamethasone, and hydrocortisone). History of Fracture in Adulthood: yes Secondary Osteoporosis: 1. Type 1 Diabetes: no 2. Hyperthyroidism: no 3. Menopause before 45: no 4. Malnutrition: no 5. Chronic liver disease: no Rheumatoid Arthritis: no Current Tobacco Use: no RISK FACTORS HISTORY OF: History of Wrist Fracture: left When: Surgery to Spine/Hip(right/left)/Wrist (right/left): right hip replaced When: 15 years ago EXAM MEASUREMENTS: Bone mineral densitometry was performed using the [employer]. Bone mineral density as measured about the Lumbar spine is: ----- L1-L4(G/cm2): 1.468 T Score Values are as follows: ----- L1: 2.0 ----- L2: 1.3 ----- L3: 2.7 ----- L4: 3.1 ----- L1-L4: 2.4 Z Score Values are as follows: ----- L1: 3.6 ----- L2: 2.9 ----- L3: 4.3 ----- L4: 4.7 ----- L1-L4: 4.0 Bone mineral density has: increased 2.4 % since study of: 08.07.2004 Bone mineral density about the L hip (g/cm2): 0.874 T Score values are as follows: -----L Neck: -0.5 -----L Total: -1.1 Z Score values are as follows: -----L Neck: 1.3 -----L Total: 0.4 Bone mineral density has: decreased -15.8 % since study of: 08.07.2004 FRAX%s: The graph provided illustrates a 12.1% chance for a major osteoporotic fx and a 1.0% chance f or the hips probability for fx in 10 years time. IMPRESSION: Osteopenia (T Score between -2.5 and -1). There is slightly increased risk of fracture and the patient may be considered for treatment. Re-Screen 2-5 years. NOTE: T-SCORE=SD OF THE YOUNG ADULT MEAN. [facility], , 12/07/2024 12:23 PM
== END | disposition home or self-care (01) ==
LOC: RADBDWWP 08:44
PROVIDERS: ATTEND Internal Medicine Hematology & Oncology
DX: M81.0 Age-related osteoporosis without current pathological fracture (principal); C18.9 Malignant neoplasm of colon, unspecified; I10 Essential (primary) hypertension; M85.852 Other specified disorders of bone density and structure, left thigh; N39.0 Urinary tract infection, site not specified; F41.9 Anxiety disorder, unspecified; Z71.89 Other specified counseling
CPT/HCPCS: 77080